=== PATIENT | female | born 1960 | race African-American/Black ===

== ENCOUNTER 2019-09-06 11:02 | Emergency (ER) | payer SELFPAY | END 2019-09-06 14:55 | disposition home or self-care (01) | LOC: ERS 11:02 | DX: K11.5 Sialolithiasis (principal); K12.2 Cellulitis and abscess of mouth; I10 Essential (primary) hypertension; E11.9 Type 2 diabetes mellitus without complications; E78.00 Pure hypercholesterolemia, unspecified; Z87.891 Personal history of nicotine dependence; Z79.899 Other long term (current) drug therapy; Z79.82 Long term (current) use of aspirin | CPT/HCPCS: 99284 ==

== ENCOUNTER 2025-03-14 15:04 | Outpatient (CLI) | payer OTHER | END 2025-03-14 15:05 | disposition home or self-care (01) | LOC: BICRAD 15:04 | PROVIDERS: ATTEND Internal Medicine | DX: Z02.71 Encounter for disability determination (principal); M47.816 Spondylosis without myelopathy or radiculopathy, lumbar region; M51.379 Other intervertebral disc degeneration, lumbosacral region without mention of lumbar back pain or lower extremity pain; M43.16 Spondylolisthesis, lumbar region | CPT/HCPCS: 72100 ==